=== PATIENT | female | born 1980 | race Caucasian/White ===

== ENCOUNTER 2019-08-07 08:01 | Emergency (ER) | payer BC, MEDICAID ==
[~2019-08-07] VITALS: Ht 160 cm; Wt 58.0 kg
[2019-08-07 08:10] VITALS: BP 145/88
[2019-08-07 11:01] LABS: HCG UR SG 1.031 (1.003-1.030)
[2019-08-07 11:03] LABS: CULTURE INDICATED? YES; MICROSCOPIC INDICATED
[2019-08-07] MEDS ORDERED: LIDOCAINE-MPF 1%, 2ML ONE (11:21)
[2019-08-07] MEDS ORDERED: CEFTRIAXONE 250 MG ONE (11:21)
[2019-08-07] MEDS ORDERED: AZITHROMYCIN 500 MG TABLET ONE (11:21)
--- NOTE | 2019-08-07 11:27 | NUR ---
PT MEDICATED WITH ROCEPHIN AND AZITHROMAX.
[2019-08-07] MEDS ORDERED: AZITHROMYCIN 500 MG TABLET PO ONE (11:30)
[2019-08-07] MEDS ORDERED: CEFTRIAXONE 1,000 MG IM ONE (11:30)
[2019-08-07 11:49] LABS: CLUE CELLS PRESENT (NONE SEEN); WET PREP WBCS MANY (FEW)
--- NOTE | 2019-08-07 12:32 | NUR ---
Patient given discharge instructions and they have confirmed that they understand the instructions. Patient ambulatory with steady gait.
== END 2019-08-07 12:33 | disposition home or self-care (01) ==
LOC: ED 08:52
DX: N89.8 Other specified noninflammatory disorders of vagina (principal); F17.200 Nicotine dependence, unspecified, uncomplicated; Z90.89 Acquired absence of other organs
CPT/HCPCS: 81001; 81025; 87086; 87147; 87210; 87808; 96372; 99283; J0696; 87491; 87591